=== PATIENT | male | born 1970 | race Caucasian/White ===

== ENCOUNTER 2017-03-14 19:06 | Inpatient (IN) | payer MEDICAID, OTHER ==
[~2017-03-14] VITALS: Ht 182.9 cm; Wt 89.1 kg
[2017-03-14] MEDS ORDERED: GABA-529 PO (19:47)
[2017-03-14] MEDS ORDERED: UNKNOWN PSYCH MED PO (19:47)
[2017-03-14] MEDS ORDERED: HYDR-3110 PO (19:47)
[2017-03-14] MEDS ORDERED: TRAZ-144 PO (19:47)
[2017-03-14 20:06] LABS: BASOPHILS % (AUTO) 0.4 % (0.0-2.0); EOSINOPHILS % (AUTO) 0.9 % (1.0-6.0); HEMATOCRIT 49.2 % (41-53); HEMOGLOBIN 16.8 g/dL (13.5-17.5); LYMPHOCYTES # (AUTO) 1.4 K/uL (1.0-4.8); LYMPHOCYTES % (AUTO) 38.8 % (22.0-44.0); MEAN CORPUSCULAR HEMOGLOBIN 32.4 pg (26.0-34.0); MEAN CORPUSCULAR HGB CONC 34.1 G/dL (31.0-37.0); MEAN CORPUSCULAR VOLUME 95 fL (80-100); MONOCYTES # (AUTO) 0.3 K/uL (0.1-1.0); MONOCYTES % (AUTO) 8.5 % (2.0-9.0); NEUTROPHILS # (AUTO) 1.9 K/uL (1.8-7.7); NEUTROPHILS % (AUTO) 51.4 % (40.0-70.0); PLATELET COUNT (AUTO) 108 K/uL (150-450); RED BLOOD CELL COUNT(AUTO) 5.17 MIL/uL (4.50-5.90); RED CELL DISTRIBUTION WIDTH 16.1 % (11.5-14.5)
[2017-03-14 20:07] LABS: ANION GAP 14 mmol/L (8-16); CALCIUM, TOTAL 8.9 mg/dL (8.8-10.5); CARBON DIOXIDE 24 mmol/L (22-29); CHLORIDE 104 mmol/L (98-107); CREATININE 0.75 mg/dL (0.60-1.30); GLOMERULAR FILTR. RATE CALC > 60 mL/min (>60); POTASSIUM 3.7 mmol/L (3.5-5.1); SODIUM SERUM 142 mmol/L (136-145); UREA NITROGEN, BLOOD 6 mg/dL (7-18)
[2017-03-14 20:13] LABS: ALANINE AMINOTRANSFERASE 123 U/L (12-78); ASPARTATE AMINOTRANSFERASE 155 U/L (15-37); BILIRUBIN,TOTAL 0.7 mg/dL (0.1-1.0); TOTAL PROTEIN, SERUM 7.6 g/dL (6.4-8.2)
[2017-03-14 20:30] LABS: WHITE BLOOD COUNT (AUTO) 3.7 K/uL (4.5-11.0)
[2017-03-14] MEDS ORDERED: HALOPERIDOL 5 MG TABLET PO PRN (21:45)
[2017-03-14] MEDS ORDERED: LORazepam 2 MG TABLET PO PRN (21:45)
[2017-03-14] MEDS ORDERED: LORazepam 2 MG TABLET PO ONE (22:00)
[2017-03-15] VITALS (8 sets, daily range): BP systolic 132–145; BP diastolic 81–93
[2017-03-15] MEDS ORDERED: MAG HYDROX/AL HYDROX/SIMETH ES 30 ML SUSPENSION UDCUP PO ONE (01:15)
[2017-03-15] MEDS ORDERED: PNEUMOCOCCAL VACCINE POLYVALENT 0.5 ML VIAL [PPSV23] IM ONE (05:00)
[2017-03-15 08:50] LABS: BASOPHILS # (AUTO) 0.02 K/uL (0.00-0.20); BASOPHILS % (AUTO) 0.2 % (0.0-2.0); EOSINOPHILS # (AUTO) 0.03 K/uL (0.00-0.70); EOSINOPHILS % (AUTO) 0.44 % (1.0-6.0); HEMATOCRIT 42.5 % (41-53); HEMOGLOBIN 14.6 g/dL (13.5-17.5); LYMPHOCYTES # (AUTO) 1.2 K/uL (1.0-4.8); LYMPHOCYTES % (AUTO) 16.5 % (22.0-44.0); MEAN CORPUSCULAR HEMOGLOBIN 32.4 pg (26.0-34.0); MEAN CORPUSCULAR HGB CONC 34.4 G/dL (31.0-37.0); MEAN CORPUSCULAR VOLUME 94 fL (80-100); MONOCYTES # (AUTO) 0.5 K/uL (0.1-1.0); MONOCYTES % (AUTO) 7.4 % (2.0-9.0); NEUTROPHILS # (AUTO) 5.4 K/uL (1.8-7.7); NEUTROPHILS % (AUTO) 75.5 % (40.0-70.0); PLATELET COUNT (AUTO) 87 K/uL (150-450); RED BLOOD CELL COUNT(AUTO) 4.51 MIL/uL (4.50-5.90); RED CELL DISTRIBUTION WIDTH 16.3 % (11.5-14.5); WHITE BLOOD COUNT (AUTO) 7.1 K/uL (4.5-11.0)
[2017-03-15 09:18] LABS: HEMOGLOBIN A1C 4.6 % (4.5-6.2)
[2017-03-15 09:33] LABS: ALANINE AMINOTRANSFERASE 97 U/L (12-78); ALBUMIN 3.3 g/dL (3.4-5.0); ANION GAP 14 mmol/L (8-16); ASPARTATE AMINOTRANSFERASE 126 U/L (15-37); BILIRUBIN,TOTAL 0.8 mg/dL (0.1-1.0); CALCIUM, TOTAL 8.5 mg/dL (8.8-10.5); CARBON DIOXIDE 27 mmol/L (22-29); CHLORIDE 103 mmol/L (98-107); CHOL/HDL RATIO 1.8 (4.2-7.3); CREATININE 0.69 mg/dL (0.60-1.30); GLOMERULAR FILTR. RATE CALC > 60 mL/min (>60); POTASSIUM 3.1 mmol/L (3.5-5.1); SODIUM SERUM 144 mmol/L (136-145); TOTAL PROTEIN, SERUM 6.4 g/dL (6.4-8.2); UREA NITROGEN, BLOOD 9 mg/dL (7-18)
[2017-03-15] MEDS ORDERED: ALBUTEROL SULFATE HFA 90 MCG/PUFF 8 GM INHALER IH PRN (11:30)
[2017-03-15] MEDS ORDERED: MAGNESIUM HYDROXIDE SUSPENSION 30 ML UDCUP PO PRN (11:30)
[2017-03-15] MEDS ORDERED: IBUPROFEN 600 MG TABLET PO PRN (11:30)
[2017-03-15] MEDS ORDERED: BENZOCAINE/MENTHOL LOZENGE MM PRN (11:30)
[2017-03-15] MEDS ORDERED: ACETAMINOPHEN 325 MG TABLET PO PRN (11:30)
[2017-03-15] MEDS ORDERED: LOPERAMIDE HCL 2 MG CAPSULE PO PRN (11:30)
[2017-03-15] MEDS ORDERED: PETROLATUM,WHITE 71 GM JELLY TP PRN (11:30)
[2017-03-15] MEDS ORDERED: BACITRACIN 28.4 GM OINTMENT TP PRN (11:30)
[2017-03-15] MEDS ORDERED: MAG HYDROX/AL HYDROX/SIMETH ES 30 ML SUSPENSION UDCUP PO PRN (11:30)
[2017-03-15] MEDS ORDERED: CloNIDine HCL 0.1 MG TABLET PO PRN (11:30)
[2017-03-15] MEDS: ONDANSETRON HCL 4 MG TABLET PO PRN (12:31)
[2017-03-15] MEDS ORDERED: POTASSIUM CHLORIDE 20 MEQ ER TABLET PO ONE (15:00)
[2017-03-15] MEDS ORDERED: LORazepam 2 MG TABLET PO PRN (15:30)
[2017-03-15] MEDS: GABAPENTIN 300 MG CAPSULE PO SCH (16:03)
[2017-03-15] MEDS: TraZODone HCL 50 MG TABLET PO SCH (20:12)
[2017-03-16 00:48] VITALS: BP 146/90
[2017-03-16 05:00] VITALS: BP 134/81
[2017-03-16] MEDS ORDERED: LORazepam 2 MG TABLET PO PRN (07:00)
[2017-03-16 08:46] VITALS: BP 138/73
[2017-03-16] MEDS: GABAPENTIN 300 MG CAPSULE PO SCH ×3 (09:16→16:12)
[2017-03-16] MEDS: LORazepam 2 MG TABLET PO SCH ×4 (09:16→20:13)
[2017-03-16] MEDS: FLUoxetine HCL 20 MG CAPSULE PO SCH (09:16)
[2017-03-16] MEDS: ONDANSETRON HCL 4 MG TABLET PO PRN (09:16)
[2017-03-16] MEDS: NICOTINE 21 MG/24 HOUR PATCH TD SCH (16:12)
[2017-03-16 16:17] VITALS: BP 130/85
[2017-03-16] MEDS: TraZODone HCL 50 MG TABLET PO SCH (20:13)
[2017-03-16] MEDS: ZOLPIDEM TARTRATE 10 MG TABLET PO PRN (22:25)
[2017-03-17 02:11] VITALS: BP 133/90
[2017-03-17 08:32] VITALS: BP 127/84
[2017-03-17 08:34] VITALS: BP 127/84
[2017-03-17] MEDS: NICOTINE 21 MG/24 HOUR PATCH TD SCH (08:40)
[2017-03-17] MEDS: GABAPENTIN 300 MG CAPSULE PO SCH ×3 (08:40→16:21)
[2017-03-17] MEDS: FLUoxetine HCL 20 MG CAPSULE PO SCH (08:40)
[2017-03-17] MEDS: LORazepam 2 MG TABLET PO SCH ×4 (08:40→20:27)
[2017-03-17] MEDS: OMEPRAZOLE 20 MG CAPSULE PO SCH (09:29)
[2017-03-17 11:09] LABS: HEPATITIS Bs ANTIGEN SCREEN P Negative (Negative); HEPATITIS C AB SCREEN <0.1 s/co ratio (0.0-0.9)
[2017-03-17 16:00] VITALS: BP 126/87
[2017-03-17 16:20] VITALS: BP 126/87
[2017-03-17] MEDS: ZOLPIDEM TARTRATE 10 MG TABLET PO PRN (20:27)
[2017-03-17] MEDS: TraZODone HCL 50 MG TABLET PO SCH (20:27)
[2017-03-18 03:06] VITALS: BP 130/99
[2017-03-18 03:07] VITALS: BP 130/99
[2017-03-18] MEDS ORDERED: LORazepam 1 MG TABLET PO PRN (07:00)
[2017-03-18 08:18] VITALS: BP 125/84
[2017-03-18 08:20] VITALS: BP 125/84
[2017-03-18] MEDS: LORazepam 1 MG TABLET PO SCH ×2 (09:06→13:57)
[2017-03-18] MEDS: GABAPENTIN 300 MG CAPSULE PO SCH ×2 (09:06→13:57)
[2017-03-18] MEDS: FLUoxetine HCL 20 MG CAPSULE PO SCH (09:06)
[2017-03-18] MEDS: OMEPRAZOLE 20 MG CAPSULE PO SCH (09:06)
[2017-03-18] MEDS: NICOTINE 21 MG/24 HOUR PATCH TD SCH (09:06)
[2017-03-18] MEDS ORDERED: OMEP20 PO (14:46)
[2017-03-18] MEDS ORDERED: FLUO-191 PO (14:46)
[2017-03-18 16:07] VITALS: BP 121/79
[2017-03-19] MEDS ORDERED: LORazepam 1 MG TABLET PO PRN (07:00)
== END 2017-03-18 16:30 | disposition home or self-care (01) | DRG 751 ==
LOC: EMS 19:07 → B2S 22:08
PROVIDERS: ADMIT Psychiatry & Neurology Psychiatry; ATTEND Psychiatry & Neurology Psychiatry
PROC: 3E0234Z Introduction of Serum, Toxoid and Vaccine into Muscle, Percutaneous Approach (ICD-10-PCS; principal; 2017-03-15)
DX: F33.3 Major depressive disorder, recurrent, severe with psychotic symptoms (principal); D69.6 Thrombocytopenia, unspecified; R45.851 Suicidal ideations; E83.51 Hypocalcemia; E87.6 Hypokalemia; F17.210 Nicotine dependence, cigarettes, uncomplicated; F10.20 Alcohol dependence, uncomplicated; F60.9 Personality disorder, unspecified; Z62.819 Personal history of unspecified abuse in childhood; I10 Essential (primary) hypertension; R11.2 Nausea with vomiting, unspecified; F41.9 Anxiety disorder, unspecified; G47.00 Insomnia, unspecified; Z91.5 Personal history of self-harm; Z59.0 Homelessness; Z79.899 Other long term (current) drug therapy; Z71.6 Tobacco abuse counseling; Z71.41 Alcohol abuse counseling and surveillance of alcoholic; Z23 Encounter for immunization
CPT/HCPCS: 80074; 82306; 83036; 84132; 84439; 84443; 87081; 90471; 99285; G0480; Q0162